=== PATIENT | female | born 1990 | race African-American/Black ===

== ENCOUNTER 2016-04-30 23:12 | Emergency (ER) | payer OTHER ==
[~2016-04-30] VITALS: Ht 167.6 cm; Wt 62.6 kg
--- NOTE | 2016-04-30 23:26 | ACF ---
Admission Forms Criteria ABDOMINAL PAIN Clinical Indications for Admission to Inpatient Care (Place 'X' for any and all applicable criteria): Admission is indicated for ANY ONE of the following(1)(2)(3)(4)(5): [ ]I. Inpatient admission required rather than observation care (Also use Abdominal Pain: Observation Care, as appropriate) because of ANY ONE of the following: [ ]a) Severe pain requiring acute inpatient management [ ]b) Identification of etiology/finding that requires inpatient care (eg, aortic dissection, free air) [ ]c) Absent bowel sounds with complete ileus(6) [ ]d) Suspected toxic megacolon [ ]e) Severe electrolyte abnormalities requiring inpatient care [ ]f) High fever or infection requiring inpatient admission as indicated by ANY ONE of following(7)(8): [ ] i) Appropriate outpatient or observational care antimicrobial treatment unavailable, not effective, or not feasible [ ] ii) Documented bacteremia [ ] iii) Temperature > 104.9 degrees F (oral) [ ] iv) T >103.1 F (oral) or < 96.8 F(rectal) that does not respond to all emergency treatment measures [ ]g) Signs of intestinal obstruction [B] [ ]h) Hemodynamic instability [ ]i) IV fluid to replace significant ongoing losses (greater than 3 L/m2 per day) (12)(13) [ ]j) Percutaneous or open drainage (eg, abscess, biliary tract ) procedures [ ]k) Parenteral nutrition regimen that must be implemented on inpatient basis [ ]l) Other condition,treatment or monitoring requiring inpatient admission. [ ]II. Peritoneal signs present [ ]III. Surgery needed that cannot be performed on an ambulatory basis. [ ]IV. Evaluation requires patient to not eat or drink for extended period ( eg, more than 24 hours). [ ]V. Contraindications and/or Inappropriate clinical situations for Observational Care in patients with abdominal pain, when ANY ONE of the following is required: [ ]a) Thorough evaluation is required to prevent catastrophic events due to delays in diagnosing (e.g.Mesenteric ischemia) 1,3 [ ]b) Patient with severe pathology or with chronic symptoms unlikely to improve in the ED stay (3) [ ]. General contraindications and/or Inappropriate clinical situations for Observational Care in patients with abdominal pain, when ANY ONE of the following is required: [ ]a) Prediction of prolongation of LOS based on ANY ONE of the following may be considered as a contraindication for observational care 2, 3, 4, 5, 6, 7, 8, 9, 10, 11 [ ]i) Age > 65 yrs. [ ]ii) Patient arriving by ambulance [ ]iii) Patient with high acuity [ ]iv) Patient requiring vital sign monitoring [ ]v) Patient on IV medication [ ]b) Systolic blood pressures 180mmHg 3,12 [ ]c) Patient with altered mental status including delirium and other alteration of consciousness, (3) [ ]d) Patient whose discharge disposition will be to a residential home or rehabilitation home should not be managed in Emergency Department Observation Unit. CMS rule requires 3 days hospital stay before such placement.3,13 [ ]e) Patient with failure to thrive due to broad array of etiologies 3,16,17 [ ]f) Inability to ambulate 3,14 Extended stay beyond goal length of stay may be needed for(2)(3): [ ]a) Persistent abdominal pain with suspected intra-abdominal process [ ]b) Diagnosed condition requiring continued stay (e.g., pancreatitis, complicated diverticulitis) [ ]c) Surgery (e.g., colectomy) The original [facility] content created by [employer] has been revised. The portions of the content which have been revised are identified through the use of italic text or in bold, and [email or web address] has neither reviewed nor approved the modified material.All other unmodified content is copyright [facility]. Please see references footnoted in the original [facility] edition 2016 Admission Criteria Met?: Pending TRENA FERGUSON Apr 30, 2016 23:26
--- NOTE | 2016-04-30 23:59 | PHYS DOC ---
Past Medical History Past Medical History: Other Past Surgical History: Oophorectomy, Other Additional Past Surgical Histo: left oophorectomy, rt nephrostomy tube Alcohol Use: Occasionally Drug Use: Marijuana Adult General Chief Complaint Chief Complaint: ABDOMINAL PAIN HPI HPI Patient is a 25 year old female who presents with right flank/right abdominal pain. She reports pain started this morning, although she has been experiencing this pain over the past week intermittently. No clear inciting or mitigating factors. Patient accompanied by nausea and vomiting. Of note, patient has right nephrostomy tube in place that was placed at [facility] in February for fluid collection in kidney. She denies fever. She was not given any medications for symptoms prior to coming to emergency department (patient is incarcerated). Review of Systems Review of Systems Constitutional: Denies fever or chills Eyes: Denies change in visual acuity or eye pain HENT: Denies nasal congestion or sore throat Respiratory: Denies cough or shortness of breath Cardiovascular: Denies chest pain GI: R side abdominal pain, nausea, vomiting. Denies bloody stools or diarrhea : Denies dysuria or hematuria Musculoskeletal: R flank pain Integument: Denies rash or skin lesions Neurologic: Denies headache, focal weakness or sensory changes Current Medications Current Medications Current Medications Medications (Trade) Dose Ordered Sig/Heather Start Time Stop Time Status Last Admin Dose Admin Ciprofloxacin (Cipro) 500 mg 1X ONCE 05/01/16 02:15 05/01/16 02:16 DC 05/01/16 02:45 500 MG Info (Do NOT chart on this entry -- for MONITORING) 1 each PRN DAILY PRN 05/01/16 00:30 05/01/16 03:04 DC Iohexol (Omnipaque 300 Mg/ml) 75 ml 1X ONCE 05/01/16 00:30 05/01/16 00:31 DC 05/01/16 00:46 75 ML Metronidazole (Flagyl) 500 mg 1X ONCE 05/01/16 02:15 05/01/16 02:16 DC 05/01/16 02:45 500 MG Morphine Sulfate 4 mg 1X ONCE 05/01/16 00:15 05/01/16 00:16 DC 05/01/16 00:25 4 MG Ondansetron HCl (Zofran) 4 mg 1X ONCE 05/01/16 00:15 05/01/16 00:16 DC 05/01/16 00:24 4 MG Sodium Chloride (Iv Sodium Chloride 0.9% 1000ml Bag) 1,000 ml @ 1,000 mls/hr Q1H 05/01/16 00:00 05/01/16 00:59 DC 05/01/16 00:25 1,000 MLS/HR Allergies Allergies Allergies Coded Allergies Type Severity Reaction Last Updated Verified amoxicillin Allergy Unknown Unknown 04/30/16 Yes levofloxacin Allergy Unknown Rash 04/30/16 Yes Physical Exam Physical Exam Constitutional: Well developed, well nourished, no acute distress, non-toxic appearance HENT: Normocephalic, atraumatic, bilateral external ears normal Eyes: EOMI, conjunctiva normal, no discharge Neck: Normal range of motion, no stridor Cardiovascular: Heart rate normal, regular rhythm, no murmur Lungs & Thorax: Bilateral breath sounds clear to auscultation Abdomen: Bowel sounds normal, soft, non-distended, mild R side abdominal TTP without guarding or rebound Skin: Warm, dry, no erythema, no rash Back: R nephrostomy tube in place, insertion site c/d/i without erythema or other sign of infection Extremities: No obvious deformity, no edema Neurologic: Alert and oriented X 3, no gross deficits noted Psychologic: Affect normal, judgement normal, mood normal Current Patient Data Vital Signs Vital Signs Date Time Temp Pulse Resp B/P Pulse Ox O2 Delivery O2 Flow Rate FiO2 05/01/16 02:25 69 115/72 100 Room Air 05/01/16 00:25 18 04/30/16 23:23 97.9 97.9 Lab Values Laboratory Tests Test 04/30/16 23:42 White Blood Count 5.0x10^3/uL (4.0-11.0) Red Blood Count 4.53x10^6/uL (3.50-5.40) Hemoglobin 11.3g/dL (12.0-15.5) L Hematocrit 34.9% (36.0-47.0) L Mean Corpuscular Volume 77fL (79-100) L Mean Corpuscular Hemoglobin 25pg (25-35) Mean Corpuscular Hemoglobin Concent 33g/dL (31-37) Red Cell Distribution Width 13.9% (11.5-14.5) Platelet Count 247x10^3/uL (140-400) Neutrophils (%) (Auto) 49% (31-73) Lymphocytes (%) (Auto) 42% (24-48) Monocytes (%) (Auto) 8% (0-9) Eosinophils (%) (Auto) 2% (0-3) Basophils (%) (Auto) 0% (0-3) Neutrophils # (Auto) 2.4x10^3uL (1.8-7.7) Lymphocytes # (Auto) 2.1x10^3/uL (1.0-4.8) Monocytes # (Auto) 0.4x10^3/uL (0.0-1.1) Eosinophils # (Auto) 0.1x10^3/uL (0.0-0.7) Basophils # (Auto) 0.0x10^3/uL (0.0-0.2) Urine Collection Type Unknown Urine Color Yellow Urine Clarity Cloudy Urine pH 7.5 Urine Specific [place] 1.010 Urine Protein Negativemg/dL (NEG-TRACE) Urine Glucose (UA) Negativemg/dL (NEG) Urine Ketones (Stick) Negativemg/dL (NEG) Urine Blood Trace (NEG) Urine Nitrite Negative (NEG) Urine Bilirubin Negative (NEG) Urine Urobilinogen Dipstick 0.2mg/dL (0.2 mg/dL) Urine Leukocyte Esterase Large (NEG) Urine RBC Occ/HPF (0-2) Urine WBC 20-40/HPF (0-4) Urine Squamous Epithelial Cells Many/LPF Urine Bacteria Moderate/HPF (0-FEW) Urine Mucus Slight/LPF Urine Trichomonas Present Sodium Level 144mmol/L (136-145) Potassium Level 4.2mmol/L (3.5-5.1) Chloride Level 106mmol/L (98-107) Carbon Dioxide Level 31mmol/L (21-32) Anion Gap 7 (6-14) Blood Urea Nitrogen 12mg/dL (7-20) Creatinine 0.8mg/dL (0.6-1.0) Estimated GFR (Cockcroft-Gault) 107.6 BUN/Creatinine Ratio 15 (6-20) Glucose Level 87mg/dL (70-99) Calcium Level 9.0mg/dL (8.5-10.1) Total Bilirubin 0.2mg/dL (0.2-1.0) Aspartate Amino Transferase (AST) 30U/L (15-37) Alanine Aminotransferase (ALT) 39U/L (14-59) Alkaline Phosphatase 85U/L (46-116) Total Protein 7.0g/dL (6.4-8.2) Albumin 3.6g/dL (3.4-5.0) Albumin/Globulin Ratio 1.1 (1.0-1.7) Lipase 246U/L (73-393) Laboratory Tests 04/30/16 23:42 Laboratory Tests 04/30/16 23:42 EKG EKG [] Radiology/Procedures Radiology/Procedures CT A/P: IMPRESSION: 1. Fluid-filled jejunal loops are mildly prominent, without a transition point seen. Findings may represent enteritis, early obstruction felt less likely although not excluded. Findings of constipation. 2. Right percutaneous nephrostomy tube with distal loop within a probable dilated superior calyx. No perinephric stranding present. Course & Med Decision Making Course & Med Decision Making Pertinent Labs and Imaging studies reviewed. (See chart for details) Patient is 25-year-old female who presents with right flank and right abdominal pain. Has nephrostomy tube in place, although this is not necessarily related to kidney issues. IV fluids, pain medication, nausea medication ordered for relief of symptoms. CT abdomen/pelvis, labs, UA ordered to evaluate. CT results as above. Labs unremarkable; no leukocytosis, renal function is okay. UA indicative of UTI. Dose of Cipro and Flagyl ordered, this will treat both enteritis as well as UTI. Discussed results with patient. Discussed importance of following up with the urologist who placed the nephrostomy tube. Will discharge back to snf with prescription for Cipro, Flagyl, docusate, ibuprofen, acetaminophen. Given instructions for follow-up with urologist. Given strict return precautions. Dragon Disclaimer Dragon Disclaimer This electronic medical record was generated, in whole or in part, using a voice recognition dictation system. Departure Departure Impression: Primary Impression: Enteritis Disposition: 05 TRANSFER OTHER Condition: STABLE Patient Instructions: Abdominal Pain (Nonspecific) Additional Instructions: Thank you for allowing us to provide care today in the Emergency Department. Take the provided medication as directed. Schedule a follow up appointment with your urologist as soon as possible. Return promptly to the Emergency Department if you develop any new or concerning symptoms. Scripts Ibuprofen 400 Mg [id number] Mg PO Q8HRS PRN PAIN 7 Days Prov:BRO FRIAS MD 05/01/16 Acetaminophen (Tylenol)325 Mg [id number] Mg PO Q8HRS PRN PAIN 7 Days Prov:BRO FRIAS MD 05/01/16 Docusate Sodium (Colace)100 Mg Capsule1 Cap PO BID #30 CAP Prov:BRO FRIAS MD 05/01/16 Metronidazole (Flagyl)500 Mg Tablet1 Tab PO BID #20 TAB Prov:BRO FRIAS MD 05/01/16 Ciprofloxacin Hcl (Cipro)500 Mg Tablet1 Tab PO BID #20 TAB Prov:BRO FRIAS MD 05/01/16 BRO FRIAS MD Apr 30, 2016 23:59
[2016-05-01] MEDS ORDERED: IV NORMAL SALINE 1000ML BAG 1,000 ML IV SCH
[2016-05-01 00:07] LABS: BASO % 0 % (0-3); EOS % 2 % (0-3); HEMATOCRIT 34.9 % (36.0-47.0); HEMOGLOBIN 11.3 g/dL (12.0-15.5); LYMPH # 2.1 x10^3/uL (1.0-4.8); LYMPH % 42 % (24-48); MEAN CORPUSCULAR HEMOGLOBIN 25 pg (25-35); MEAN CORPUSCULAR HGB CONC 33 g/dL (31-37); MEAN CORPUSCULAR VOLUME 77 fL (79-100); MONO % 8 % (0-9); NEUT % 49 % (31-73); PLATELET COUNT 247 x10^3/uL (140-400); RED BLOOD COUNT 4.53 x10^6/uL (3.50-5.40); RED CELL DISTRIBUTION WIDTH 13.9 % (11.5-14.5)
[2016-05-01 00:15] LABS: CREATININE 0.8 mg/dL (0.6-1.0); GFR 107.6; POTASSIUM 4.2 mmol/L (3.5-5.1)
[2016-05-01] MEDS ORDERED: ONDANSETRON PF 4 MG/2 ML VIAL. IV ONE (00:15)
[2016-05-01] MEDS ORDERED: MORPHINE SULFATE 4 MG/ML DISP.SYRIN. IV ONE (00:15)
[2016-05-01 00:20] LABS: ALBUMIN 3.6 g/dL (3.4-5.0); ALBUMIN/GLOBULIN RATIO 1.1 (1.0-1.7); TOTAL BILIRUBIN 0.2 mg/dL (0.2-1.0)
[2016-05-01 00:26] LABS: BILIRUBIN,URINE NEGATIVE (NEG); GLUCOSE,URINE NEGATIVE (NEG); NITRITE,URINE NEGATIVE (NEG); PH,URINE 7.5; PROTEIN,URINE NEGATIVE (NEG-TRACE); UROBILINOGEN,URINE 0.2 mg/dL (0.2 mg/dL)
[2016-05-01 00:27] LABS: BACTERIA,URINE MODERATE /HPF (0-FEW); RBC,URINE OCC /HPF (0-2); SQUAMOUS EPITHELIAL CELL,UR MANY /LPF; WBC,URINE 20-40 /HPF (0-4)
[2016-05-01 00:28] LABS: TRICHOMONAS,URINE PRESENT
[2016-05-01] MEDS ORDERED: CONTRAST GIVEN MC PRN (00:30)
[2016-05-01] MEDS ORDERED: IOHEXOL 300 MG/ML 75 ML VIAL IV ONE (00:30)
--- NOTE | 2016-05-01 01:39 | RAD ---
INDICATION: 25-year-old female with abdominal pain and distention. History of nephrostomy tube. COMPARISON: None TECHNIQUE: Axial CT images obtained through the abdomen and pelvis following the intravenous administration of 75 cc of Omni 300. Coronal and sagittal reformats are provided. One or more of the following individualized dose reduction techniques were utilized for this examination: 1. Automated exposure control; 2. Adjustment of the mA and/or kV according to patient size; 3. Use of iterative reconstruction technique. FINDINGS: Visualized lung bases appear clear. The liver, spleen, gallbladder, pancreas, adrenal glands and left kidney demonstrate no focal abnormality. A right posterior approach percutaneous nephrostomy tube is present, with the distal loop within a rounded fluid-filled structure likely a dilated superior renal calyx. A few jejunal loops are fluid-filled and prominent in size in the upper abdomen. No definite transition point seen. Distal small bowel loops are mostly decompressed. There is formed fecal material present throughout the colon suggesting a degree of constipation. Appendix is air-filled in the right lower quadrant. The urinary bladder demonstrates no focal abnormality. Uterus and bilateral adnexa demonstrate no focal abnormality. No intra-abdominal or pelvic free fluid, free air or significant lymphadenopathy is seen. The aorta is normal in caliber. Visualized osseous structures and overlying soft tissues demonstrate no acute or suspicious finding. IMPRESSION: 1. Fluid-filled jejunal loops are mildly prominent, without a transition point seen. Findings may represent enteritis, early obstruction felt less likely although not excluded. Findings of constipation. 2. Right percutaneous nephrostomy tube with distal loop within a probable dilated superior calyx. No perinephric stranding present. Electronically signed by: Annamaria Engle (May 01, 2016 01:37:53)
[2016-05-01] MEDS ORDERED: METR500T PO (01:59)
[2016-05-01] MEDS ORDERED: DOCU-27 PO (01:59)
[2016-05-01] MEDS ORDERED: CIPR500T94 PO (01:59)
[2016-05-01] MEDS ORDERED: CIPROFLOXACIN HCL 250 MG TABLET PO ONE (02:15)
[2016-05-01] MEDS ORDERED: METRONIDAZOLE 500 MG TABLET. PO ONE (02:15)
[2016-05-01 02:25] VITALS: BP 115/72
[2016-05-01] MEDS ORDERED: IBUP-1027 PO (02:59)
[2016-05-01] MEDS ORDERED: ACET325T9 PO (02:59)
== END 2016-05-01 02:53 | disposition home or self-care (01) ==
LOC: EEVIPCON 23:12 → ER 23:12
DX: K52.9 Noninfective gastroenteritis and colitis, unspecified (principal); F12.10 Cannabis abuse, uncomplicated; Z88.1 Allergy status to other antibiotic agents; Z93.6 Other artificial openings of urinary tract status; Z90.721 Acquired absence of ovaries, unilateral
CPT/HCPCS: 36415; 74177; 80053; 81001; 83690; 85027; 87086; 96361; 96374; 96375; 99285; J2270; J2405; J7030; Q9967